=== PATIENT | male | born 1955 | race Caucasian/White ===

== ENCOUNTER 2017-06-09 06:45 | Emergency (ER) | payer BC ==
[~2017-06-09] VITALS: Ht 175.3 cm; Wt 99.8 kg
[2017-06-09 07:28] LABS: Basophils # (auto) 0.2 uL; Basophils % (auto) 2.8 % (0.0-2.0); Eosinophils # (auto) 0.1 uL; Eosinophils % (auto) 1.4 % (0.0-7.0); Hematocrit 45.4 % (41.0-53.0); Hemoglobin 15.5 g/dL (13.5-17.5); Lymphocytes # (auto) 1.8 uL; Lymphocytes % (auto) 23.1 % (10.0-50.0); Mean Corpuscular Hemoglobin 30.6 pg (28.0-32.0); Mean Corpuscular Hgb Conc. 34.2 g/dL (32.0-36.0); Mean Corpuscular Volume 89.4 fL (80.0-100.0); Monocytes # (auto) 0.6 uL; Monocytes % (auto) 8.1 % (0.0-12.0); Neutrophils % (auto) 64.6 % (37.0-80.0); Nucleated Red Blood Cells % 0.2 %; Platelet Count (auto) 211 10^3/uL (140-450); Red Blood Cells 5.08 10^6/uL (4.5-5.90); Red Cell Distribution Width 13.3 % (11.8-14.3); White Blood Cell 7.7 10^3/uL (4.4-10.8)
[2017-06-09 07:46] LABS: Albumin 3.7 g/dL (3.4-5.0); Anion Gap 10 (5-15); BUN/Creatinine Ratio 15.5; Blood Alcohol < 3.0 mg/dL (0-5); Blood Urea Nitrogen 17 mg/dL (7-18); Calcium 9.2 mg/dL (8.5-10.1); Carbon Dioxide 24 mmol/L (21-32); Chloride 107 mmol/L (98-107); GFR African American 88 mL/min; GFR Non-African American 73 mL/min; Glucose 107 mg/dL (74-106); Potassium 3.9 mmol/L (3.5-5.1); Sodium 141 mmol/L (136-145)
[2017-06-09 07:53] LABS: INR 0.97 (0.9-1.15); Partial Thromboplastin Time 24.3 sec (22.64-33.71); Prothrombin Time 10.6 sec (9.37-12.3)
[2017-06-09 07:57] LABS: Alanine Aminotransferase 53 U/L (16-61); Alkaline Phosphatase 72 U/L (45-117); Aspartate Aminotransferase 24 U/L (15-37); Bilirubin, Total 0.5 mg/dL (0.2-1.0); Total Protein 7.9 g/dL (6.4-8.2)
[2017-06-09 10:21] VITALS: BP 136/74
[2017-06-09] MEDS ORDERED: IBUPROFEN 800 MG TAB PO ONE (10:30)
== END 2017-06-09 11:45 | disposition home or self-care (01) ==
LOC: ER 06:45 → EDBD 06:45 → ER 11:45
DX: G45.9 Transient cerebral ischemic attack, unspecified (principal); I10 Essential (primary) hypertension
CPT/HCPCS: 36415; 70450; 71046; 80053; 80320; 82962; 84484; 85025; 85610; 85730; 93005; 94761